=== PATIENT | female | born 1995 | race Hispanic/Latino ===

== ENCOUNTER → 2020-05-04 | Outpatient (CLI) | payer BC ==
[~2020-05-04] MED LIST: IOHEXOL-350 50ML VIAL IV ONE
== END ==
LOC: RAH 09:19
PROVIDERS: ATTEND Obstetrics & Gynecology
DX: N70.13 Chronic salpingitis and oophoritis (principal)
CPT/HCPCS: 36415; 58340; 74740; 84703; Q9967